=== PATIENT | female | born 1995 | race Caucasian/White ===

== ENCOUNTER → 2016-09-09 | Outpatient (CLI) | payer OTHER ==
--- NOTE | 2016-09-10 07:52 | XR ---
EXAMINATION TYPE: XR foot complete LT DATE OF EXAM: 09/09/2016 12:14 PM CLINICAL HISTORY: Increasing left foot pain after running last week. TECHNIQUE: Frontal, lateral, and oblique images of the left foot are obtained. COMPARISON: None FINDINGS: There is no acute fracture/dislocation evident in the left foot. The joint spaces in the left foot appear within normal limits. The overlying soft tissue appears unremarkable. IMPRESSION: There is no acute fracture or dislocation in the left foot.
== END | disposition home or self-care (01) ==
LOC: RADXRYALE 11:59
PROVIDERS: ATTEND Physician Assistant Medical
DX: M79.672 Pain in left foot (principal)

== ENCOUNTER → 2016-11-11 | Outpatient (CLI) | payer OTHER ==
--- NOTE | 2016-11-11 13:42 | CT ---
EXAMINATION TYPE: CT brain wo con DATE OF EXAM: 11/11/2016 1:30 PM COMPARISON: NONE HISTORY: 21-year-old female blurred vision, intractable migraines TECHNIQUE: Examination was done in axial plane without intravenous contrast. Coronal and sagittal r econstructions performed. CT DLP: 1086 mGycm Automated exposure control for dose reduction was used. FINDINGS: There is no evidence of acute intracranial hemorrhage, acute ischemic changes, mass, mass-effect, or extra-axial fluid collection. There is no effacement of cerebral sulci or basal subarachnoid cister ns. There is no hydrocephalus. There is no midline shift. Carbone-white matter distinction is preserv ed. Slight rightward nasal septal deviation. Mastoid air cells and paranasal sinuses are clear. Orbits an d globes are intact. IMPRESSION: No acute intracranial abnormality seen.
== END | disposition home or self-care (01) ==
LOC: RADCTMAIN 12:37
PROVIDERS: ATTEND Physician Assistant Medical
DX: R42 Dizziness and giddiness (principal); G43.019 Migraine without aura, intractable, without status migrainosus; J34.2 Deviated nasal septum
CPT/HCPCS: 70450

== ENCOUNTER → 2016-12-15 | Outpatient (CLI) | payer OTHER ==
--- NOTE | 2016-12-15 12:45 | US ---
EXAMINATION TYPE: US thyroid st tissue head/neck DATE OF EXAM: 12/15/2016 12:33 PM COMPARISON: NONE CLINICAL HISTORY: R79.89 ABN TSH. Possible left neck palpable noted by physician GLAND SIZE: Right Lobe: 4.5 x 1.7 x 1.2 cm Overall Parenchyma: homogenous Left Lobe: 4.4 x 1.5 x 1.1 cm Overall Parenchyma: homogeneous Isthmus Thickness: 0.1 cm NODULES RIGHT: # of nodules measured on right: 0 LEFT: # of nodules measured on left: 0 ISTHMUS: # of nodules measured in the isthmus: 0 Bilateral neck scanned, no evidence of lymphadenopathy. Thyroid gland is homogeneous. No solid or cystic nodule seen. IMPRESSION: Normal thyroid ultrasound
== END | disposition home or self-care (01) ==
LOC: RADUSWWP 12:14
PROVIDERS: ATTEND Family Medicine
DX: R94.6 Abnormal results of thyroid function studies (principal)
CPT/HCPCS: 76536; 84439; 84443; 86376

== ENCOUNTER → 2018-12-15 | Outpatient (CLI) | payer OTHER | END | disposition home or self-care (01) | LOC: LABWHC1 12:26 | PROVIDERS: ATTEND Obstetrics & Gynecology | DX: O20.0 Threatened abortion (principal) | CPT/HCPCS: 36415; 84702; 86850; 86900; 86901 ==

== ENCOUNTER → 2018-12-17 | Outpatient (CLI) | payer OTHER | END | disposition home or self-care (01) | LOC: LABWHC1 12:40 | PROVIDERS: ATTEND Obstetrics & Gynecology | DX: O20.0 Threatened abortion (principal); Z3A.00 Weeks of gestation of pregnancy not specified | CPT/HCPCS: 36415; 84702 ==

== ENCOUNTER → 2018-12-20 | Outpatient (CLI) | payer OTHER ==
[2018-12-20 15:28] LABS: HCT 42.5 % (34.0-46.0); HGB 14.2 gm/dL (11.4-16.0); MCH 29.6 pg (25.0-35.0); MCHC 33.5 g/dL (31.0-37.0); MCV 88.5 fL (80.0-100.0); Mean Platelet Volume 7.5; Platelet Count 215 k/uL (150-450); RBC 4.81 m/uL (3.80-5.40); RDW 13.3 % (11.5-15.5)
== END ==
LOC: LABWHC1 14:46
PROVIDERS: ATTEND Obstetrics & Gynecology
DX: O03.9 Complete or unspecified spontaneous abortion without complication (principal)
CPT/HCPCS: 36415; 85027; 86850; 86900; 86901

== ENCOUNTER → 2018-12-21 | Outpatient (CLI) | payer OTHER | END | disposition home or self-care (01) | LOC: LABWHC1 15:29 | PROVIDERS: ATTEND Obstetrics & Gynecology | DX: O20.0 Threatened abortion (principal); Z3A.00 Weeks of gestation of pregnancy not specified | CPT/HCPCS: 36415; 84702 ==

== ENCOUNTER → 2018-12-22 | Outpatient (CLI) | payer OTHER ==
--- NOTE | 2018-12-22 11:52 | US ---
EXAMINATION TYPE: Transabdominal and Transvaginal DATE OF EXAM: 12/22/2018 10:58 AM COMPARISON: NONE CLINICAL HISTORY: O46.91 Antepartum hemorrhage, unspecified, first t. EXAM PERFORMED: Transvaginal (TV) and Transabdominal (TA) EXAM MEASUREMENTS: GESTATIONAL AGE / DATING Physician Established: Not yet established Dates by LMP: Dates by First Scan: No previous this is first scan Dates by Current Scan for: (6 weeks/0 days) EDC: 08/27/2019 MATERNAL ANATOMY Uterus: 7.4 x 4.3 x 2.1cm Right Ovary: 2.1 x 1.4 x 2.1cm Left Ovary: 2.1 x 1.6 x1.4 cm Post CDS / Adnexa: wnl Presence of free fluid: no Presence of corpus luteal cyst: on right measuring 1.5 x 1.7 x 1.1cm Presence of subchorionic bleed: no GESTATION / SURVEY CRL: 0.4 (6 weeks/0 days) Yolk Sac (normal less than 6mm): 4mm Heart Rate: 121 bpm IUP: Live IUP Beta HcG (if available): Not available at this time L/M on back line. No answer. Patient hold and call IMPRESSION: Single live intrauterine with a sonographic age of 6 weeks and 0 days and heart rate of 121 bpm. No subchorionic hemorrhage is seen despite this patient's stated vaginal bleeding. MTDD
== END ==
LOC: RADUSWWP 10:28
PROVIDERS: ATTEND Obstetrics & Gynecology
DX: O46.91 Antepartum hemorrhage, unspecified, first trimester (principal); Z3A.01 Less than 8 weeks gestation of pregnancy
CPT/HCPCS: 76801; 76817

== ENCOUNTER → 2019-01-05 | Outpatient (CLI) | payer OTHER ==
[2019-01-05 12:46] LABS: Basophils % (A) 0 %; Eosinophils # (A) 0.2 k/uL (0-0.7); Eosinophils % (A) 3 %; HCT 44.1 % (34.0-46.0); HGB 14.1 gm/dL (11.4-16.0); Lymphocytes # (A) 1.4 k/uL (1.0-4.8); Lymphocytes % (A) 19 %; MCH 28.5 pg (25.0-35.0); MCHC 31.9 g/dL (31.0-37.0); MCV 89.1 fL (80.0-100.0); Mean Platelet Volume 7.2; Monocytes # (A) 0.2 k/uL (0-1.0); Monocytes % (A) 3 %; Neutrophils # (A) 5.5 k/uL (1.3-7.7); Neutrophils % (A) 74 %; Platelet Count 213 k/uL (150-450); RBC 4.94 m/uL (3.80-5.40); RDW 12.7 % (11.5-15.5); WBC 7.3 k/uL (3.8-10.6)
== END | disposition home or self-care (01) ==
LOC: LABPAT 11:30
PROVIDERS: ATTEND Obstetrics & Gynecology
DX: Z01.812 Encounter for preprocedural laboratory examination (principal); O03.9 Complete or unspecified spontaneous abortion without complication
CPT/HCPCS: 36415; 85025

== ENCOUNTER → 2019-01-05 | Outpatient (CLI) | payer OTHER | END | disposition home or self-care (01) | LOC: LABPAT 09:03 | PROVIDERS: ATTEND Obstetrics & Gynecology | DX: Z53.9 Procedure and treatment not carried out, unspecified reason (principal) ==

== ENCOUNTER 2019-01-07 07:46 | Day surgery (SDC) | payer OTHER ==
[2019-01-04 15:08] VITALS: BMI 21.5
[~2019-01-07 07:46] MED LIST: DEXAMETHASONE SOD PHOSPHATE 10 MG/ML 1 ML VIAL IV ONE; HYDROmorphone 0.5 MG/0.5 ML SYRINGE IVP PRN; LACTATED RINGERS 1,000 ML IV SCH; LIDOCAINE 1% 20 ML VIAL (10MG/ML) FOR IV START INTRADERMA PRN; ONDANSETRON 4 MG/2 ML VIAL IVP ONE; Pre Op ABX Message 1 EACH MISC MISCELLANE ONE; SCOPOLAMINE 1.5MG/72HR PATCH TRANSDERM ONE
[2019-01-07] MEDS ORDERED: LACTATED RINGERS 1,000 ML IV ONE (08:10)
[2019-01-07] MEDS ORDERED: KETOROLAC 30 MG/ML 1 ML VIAL ONE (09:01)
[2019-01-07] MEDS ORDERED: MIDAZOLAM 2 MG/2 ML VIAL ONE (09:01)
[2019-01-07] MEDS ORDERED: fentaNYL (PF) 50 MCG/ML 2 ML AMP ONE (09:01)
[2019-01-07] MEDS ORDERED: PROPOFOL 10 MG/ML 20 ML VIAL IV ONE (09:01)
[2019-01-07] MEDS ORDERED: LIDOCAINE 1% INJ 10MG/ML (20 ML MDV) ONE (09:01)
[2019-01-07 09:50] VITALS: TEMP 98.1
[2019-01-07] MEDS ORDERED: IBUPROFEN 600 MG TAB PO PRN (09:53)
[2019-01-07] MEDS ORDERED: KETOROLAC 30 MG/ML 1 ML VIAL IVP PRN (09:53)
[2019-01-07] MEDS ORDERED: ONDANSETRON 4 MG/2 ML VIAL IVP PRN (09:53)
[2019-01-07] MEDS ORDERED: METOCLOPRAMIDE 5 MG/ML 2 ML VIAL IVP PRN (09:53)
[2019-01-07] MEDS ORDERED: diphenhydrAMINE 50 MG/ML 1 ML VIAL IVP PRN (09:53)
[2019-01-07] MEDS ORDERED: SIMETHICONE 80 MG CHEWABLE PO PRN (09:53)
[2019-01-07] MEDS ORDERED: Acetaminophen-Codeine 300-30mg TAB PO PRN ×2 (09:53)
--- NOTE | 2019-01-07 09:59 | P.OP ---
Date of Procedure: 01/07/19 Preoperative Diagnosis: #1. 6+ weeks missed Postoperative Diagnosis: Same Procedure(s) Performed: #1. Dilation and aspiration curettage Anesthesia: other (Gen. by facemask) Surgeon: Yadiel Sweet Estimated Blood Loss (ml): 50 IV fluids (ml): 400 Urine output (ml): 0 Pathology: other (Intrauterine contents/products of conception) Condition: stable Disposition: PACU Operative Findings: Preoperative pelvic examination demonstrated a roughly 6 week slightly anteverted mobile normal shaped uterus with normal adnexa bilaterally. Intraoperatively, the uterus sounded to 9.5 cm. A #8 curved aspiration curet was used through which there was tissue clearly seen passing on the first pass and not thereafter. A small sharp curette was utilized with the typical gritty texture encountered throughout. The uterus was appreciably smaller at the end of the case. Description of Procedure: The patient was prepped and draped in usual fashion after general anesthesia was administered by the anesthesiologist. A weighted speculum was placed and the anterior lip of the cervix grasped with a single-tooth tenaculum. The uterus was sounded to 9.5 cm as noted above. Serial dilation was carried out to admit a #8 curved aspiration curet which was placed to the fundus and suction applied. After building adequate suction, thorough and circumferential aspiration curettage was carried out from the fundus to the cervix with tissue clearly seen passing through the tubing. A second pass was made at which time no tissue nor any other contents were noted passing through the tubing. The aspiration curet was set aside in favor of a small sharp curette which was utilized to again thoroughly and circumferentially curet the endometrial cavity from the fundus to the cervix with no further production of tissue and the typical gritty texture was encountered throughout. One last pass was made with aspiration curet at which time no tissue was again seen. All instrumentation was then removed. There was no ongoing bleeding either from the cervix or from the tenaculum site. Estimated blood loss for the entire case was 50 mL or less. There were no complications. All sponge, instrument, and needle counts were correct. The patient tolerated the procedure well and proceeded to the recovery room in stable condition.
[2019-01-07] MEDS ORDERED: LACTATED RINGERS 1,000 ML IV SCH (10:00)
[2019-01-07 10:19] VITALS: RESP 18
[2019-01-07 11:02] VITALS: BP 107/78; PULSE 91
== END 2019-01-07 11:15 | disposition home or self-care (01) ==
LOC: OR 07:46
PROVIDERS: ATTEND Obstetrics & Gynecology
DX: O02.1 Missed abortion (principal)
CPT/HCPCS: 86900; 86901; 88305; 86850; 59820; J2250; J1100; J2405; J2001; J3010; J1885; J2704

== ENCOUNTER 2021-04-11 06:23 | Inpatient (IN) | payer OTHER ==
[2021-04-11] MEDS ORDERED: OXYTOCIN 10 UNIT/ML 1 ML VIAL IM PRN (06:39)
[2021-04-11] MEDS ORDERED: METHYLERGONOVINE 0.2 MG/ML 1 ML AMP IM PRN (06:39)
[2021-04-11] MEDS ORDERED: LIDOCAINE 0.5% (PF) 5 MG/ML (50 ML SDV) SQ PRN (06:39)
[2021-04-11] MEDS ORDERED: CARBOPROST TROMETHAMINE 250 MCG/ML 1 ML AMP IM PRN (06:39)
[2021-04-11] MEDS ORDERED: TERBUTALINE 1 MG/ML VIAL SQ PRN (06:39)
[2021-04-11 06:45] LABS: Glucose,Whole Blood 88 mg/dL (75-99)
[2021-04-11] MEDS ORDERED: LACTATED RINGERS 1,000 ML IV SCH (06:45)
[2021-04-11] MEDS: LACTATED RINGERS 1,000 ML IV SCH ×2 (06:47→23:45)
[2021-04-11] MEDS: OXYTOCIN 30 UNITS/500 ML NS 30 UNIT in SALINE 1 500ML.BAG IV SCH (06:55)
[2021-04-11 07:24] LABS: Basophils % (A) 0 %; Eosinophils # (A) 0.2 k/uL (0-0.7); Eosinophils % (A) 2 %; HCT 35.6 % (34.0-46.0); Hypochromasia Slight; Lymphocytes # (A) 1.6 k/uL (1.0-4.8); Lymphocytes % (A) 15 %; MCH 26.1 pg (25.0-35.0); MCHC 30.8 g/dL (31.0-37.0); MCV 84.7 fL (80.0-100.0); Mean Platelet Volume 9.7; Monocytes # (A) 0.5 k/uL (0-1.0); Monocytes % (A) 5 %; Neutrophils # (A) 8.7 k/uL (1.3-7.7); Neutrophils % (A) 77 %; Platelet Count 217 k/uL (150-450); Poikilocytosis Slight; RBC 4.21 m/uL (3.80-5.40); RDW 15.5 % (11.5-15.5); WBC 11.2 k/uL (3.8-10.6)
[2021-04-11] MEDS ORDERED: LABETALOL 100 MG TAB PO STA (08:38)
[2021-04-11] MEDS ORDERED: BUTORPHANOL 1 MG/ML 1 ML VIAL IV PRN (08:43)
--- NOTE | 2021-04-11 08:47 | P.HPOB ---
History of Present Illness H&P Date: 04/11/21 Chief Complaint: 37+ weeks, -induced hypertension The patient is a 25-year-old 2 para 0010 admitted at 37+ weeks by 6 week ultrasound. She is admitted for increasingly labile blood pressures despite medication with labetalol 100 mg twice daily and the diagnosis of - induced hypertension. All of her laboratory workup has been normal on several different occasions though she has mildly elevated proteinuria. She additionally has a diagnosis of gestational diabetes but has had normal blood sugars throughout the entire . All testing has been reassuring. Her status is negative. On labor and delivery, she has a category 1 heart rate tracing. Obstetrical history: 2 para 0010 with current statistics listed in history present illness. She has a history of a previous miscarriage not requiring D&C. EDC of 04/26/2021 was established by 6 week ultrasound. Laboratory workup demonstrates a blood type of O+ with a negative antibody screen. Rubella status is immune. Remainder of the laboratory workup was within normal limits. One hour Glucola was significantly elevated at greater than 200 and the diagnosis of gestational diabetes was made. Group B strep status is negative. Gynecologic history: Unremarkable with no history of any infections to include STDs. Review of Systems Review of systems is confined to history of present illness. Past Medical History Past Medical History: No Reported History Additional Past Medical History / Comment(s): Gestational diabetes History of Any Multi-Drug Resistant Organisms: None Reported Additional Past Surgical History / Comment(s): laparoscopy for endometriosis Past Anesthesia/Blood Transfusion Reactions: No Reported Reaction, Motion Sickness Past Psychological History: No Psychological Hx Reported Smoking Status: Never smoker Past Alcohol Use History: Occasional Past Drug Use History: None Reported - Past Family History Mother Family Medical History: No Reported History Medications and Allergies Home Medications Medication Instructions Recorded Confirmed Type Acetaminophen Tab [Tylenol Tab] 500 mg PO Q6H PRN 01/04/19 04/11/21 History Pnv No.95/Ferrous Fum/Folic AC 1 each PO DAILY 01/04/19 04/11/21 History [ Multivitamin Tablet] Cetirizine HCl [Zyrtec] 1 tab PO ONCE 04/11/21 04/11/21 History Labetalol [Trandate] 1 tab PO BID 04/11/21 04/11/21 History Allergies Allergy/AdvReac Type Severity Reaction Status Date / Time No Known Allergies Allergy Verified 04/11/21 06:38 Exam Vital Signs Temp Pulse Resp BP Pulse Ox 04/11/21 06:35 98.5 F 86 16 172/109 100 Intake and Output 04/10/21 04/11/21 04/11/21 22:59 06:59 14:59 Other: Weight 87.997 kg In general, this is a well-developed, well-nourished white female in no acute distress. Her heart has a regular rhythm and rate without murmur. Her lungs a re clear to auscultation bilaterally in all frankel. Her abdomen is gravid, nondistended, has normal active bowel sounds, is soft, nontender, and without any palpable masses aside from uterine fundus. Her extremities are without any cyanosis, clubbing, or edema and are nontender to palpation bilaterally. Digital cervical examination demonstrates her cervix to be 2 cm dilated, 50% effaced, the vertex in presentation at -1 station. Artificial rupture of membranes is carried out demonstrating clear fluid. Results Result Diagrams: 04/11/21 06:40 Abnormal Lab Results - Last 24 Hours (Table) 04/11/21 Range/Units 06:40 WBC 11.2 H (3.8-10.6) k/uL Hgb 11.0 L (11.4-16.0) gm/dL MCHC 30.8 L (31.0-37.0) g/dL Neutrophils # 8.7 H (1.3-7.7) k/uL Assessment and Plan (1) Term Current Visit: Yes Status: Acute Code(s): Z34.90 - ENCNTR FOR SUPRVSN OF NORMAL , UNSP, UNSP TRIMESTER SNOMED Code(s): 68725337 (2) induced hypertension Current Visit: Yes Status: Acute Code(s): O13.9 - GESTATIONAL HTN W/O SIGNIFICANT PROTEINURIA, UNSP TRIMESTER SNOMED Code(s): 85407247 Plan: The patient is admitted for induction of labor secondary to -induced hypertension with worsening and labile pressures despite antihypertensive medication. Her labs have been negative for findings of preeclampsia. On labor and delivery, she has had Pitocin started and undergone artificial rupture of membrane's. She will have close maternal and surveillance and expectant management will be practiced. She is a good candidate for either IV or epidural analgesia, whichever she may choose.
[2021-04-11 12:06] LABS: Glucose,Whole Blood 73 mg/dL (75-99)
[2021-04-11 14:23] LABS: Hemoglobin A1C 5.1 % (4.0-6.0)
[2021-04-11] MEDS ORDERED: SODIUM CHLORIDE 0.9% 100 ML BAG ONE (17:13)
[2021-04-11] MEDS ORDERED: ROPIVACAINE 5MG/ML 20ML VIAL ONE (17:13)
[2021-04-11] MEDS ORDERED: fentaNYL (PF) 50 MCG/ML 5 ML AMP ONE (17:13)
[2021-04-12] MEDS ORDERED: PENICILLIN G POTASSIUM 5,000,000 UNIT in DEXTROSE 5% IN WATER 100 ML IVPB ONE ×2
[2021-04-12] MEDS ORDERED: HYDROCORTISONE 2.5% RECTAL CREAM 30 GM TUBE RECTAL PRN (03:51)
[2021-04-12] MEDS ORDERED: BENZOCAINE/MENTHOL SPRAY 1 GM/SPRAY AEROSOL TOPICAL PRN (03:51)
[2021-04-12] MEDS ORDERED: LANOLIN CREAM 5 GM TUBE TOPICAL PRN (03:51)
[2021-04-12] MEDS ORDERED: ZOLPIDEM 5 MG TAB PO PRN (03:51)
[2021-04-12] MEDS ORDERED: HYDROcodone/APAP 7.5-325MG 1 EACH TAB PO PRN (03:51)
[2021-04-12] MEDS ORDERED: HYDROcodone/APAP 5-325MG 1 EACH TAB PO PRN (03:51)
[2021-04-12] MEDS ORDERED: diphenhydrAMINE 50 MG/ML 1 ML VIAL IVP PRN ×2 (03:51)
[2021-04-12] MEDS ORDERED: diphenhydrAMINE 25 MG CAP PO PRN (03:51)
[2021-04-12] MEDS ORDERED: SIMETHICONE 80 MG CHEWABLE PO PRN (03:51)
[2021-04-12] MEDS ORDERED: diphenhydrAMINE 50 MG CAP PO PRN (03:51)
--- NOTE | 2021-04-12 03:56 | P.PROBDLV ---
Vaginal Delivery Note - . Vaginal Delivery Note: The patient is a 25-year-old 2 para 0010 admitted at 37-6/7 weeks by good dating parameters. She is admitted for induction of labor secondary to -induced hypertension with significantly increasing labile blood pressures despite antihypertensive therapy. Workup for preeclampsia has been negative. Her was otherwise gestational diabetes which was well controlled with diet alone. testing was reassuring throughout. On labor and delivery, she had Pitocin started followed by artificial rupture of membranes. She progressed to around the onset of the active phase of labor which time an epidural catheter was placed for analgesia. She presents very slowly through the active phase of labor but continued to make steady progress and ultimately progressed to complete. She then pushed over the course of approximate 25 minutes to a normal spontaneous vaginal delivery of a viable 8 lbs. 3 oz. baby girl with Apgars of 9 at minute and 9 at 5 minutes delivered in the right occiput anterior position. There was a loose nuchal cord 1 which was reduced prior to delivering the 's body. The nose and mouth were thoroughly suctioned on the perineum secondary to light meconium-stained fluid. Following delivery of the infant, she was immediately vigorous and direct laryngoscopy was not required. The placenta was delivered spontaneously, intact, and grossly normal with a grossly normal three-vessel cord inserted approximate 5 cm from the margin of the placental disc. A small midline episiotomy had been cut for delivery and was noted to have not extended. It was repaired in standard fashion using 3-0 chromic catgut without difficulty. Estimated blood loss for the entire case was approximately 350 mL. There were no complications. All sponge, instrument, and needle counts were correct. Both mother and are resting comfortably in recovery.
[2021-04-12] MEDS ORDERED: OXYTOCIN 30 UNITS/500 ML NS 30 UNIT in SALINE 1 500ML.BAG IV SCH (04:00)
[2021-04-12] MEDS ORDERED: PENICILLIN G POTASSIUM 2,500,000 UNIT in DEXTROSE 5% IN WATER 100 ML IVPB SCH ×2 (04:00)
[2021-04-12] MEDS: IBUPROFEN 600 MG TAB PO PRN ×2 (04:19→20:41)
[2021-04-12] MEDS: OXYTOCIN 30 UNITS/500 ML NS 30 UNIT in SALINE 1 500ML.BAG IV SCH (05:40)
[2021-04-12] MEDS: SENNOSIDES-DOCUSATE SODIUM 1 EACH TAB PO SCH ×2 (09:30→20:41)
[2021-04-12] MEDS: ACETAMINOPHEN TAB 325 MG TAB PO PRN ×2 (09:31→17:12)
[2021-04-12] MEDS: LABETALOL 100 MG TAB PO SCH ×2 (09:38→20:58)
[2021-04-12 17:14] LABS: Glucose,Whole Blood 113 mg/dL (75-99)
[2021-04-12 17:31] LABS: Basophils % (A) 0 %; Eosinophils # (A) 0.1 k/uL (0-0.7); Eosinophils % (A) 1 %; HCT 34.3 % (34.0-46.0); HGB 11.2 gm/dL (11.4-16.0); Hypochromasia Slight; Lymphocytes # (A) 1.7 k/uL (1.0-4.8); Lymphocytes % (A) 8 %; MCH 27.8 pg (25.0-35.0); MCHC 32.6 g/dL (31.0-37.0); MCV 85.2 fL (80.0-100.0); Mean Platelet Volume 8.9; Monocytes # (A) 0.6 k/uL (0-1.0); Monocytes % (A) 3 %; Neutrophils # (A) 17.7 k/uL (1.3-7.7); Neutrophils % (A) 86 %; Platelet Count 266 k/uL (150-450); RBC 4.03 m/uL (3.80-5.40); RDW 15.7 % (11.5-15.5); WBC 20.5 k/uL (3.8-10.6)
[2021-04-12] MEDS: LACTATED RINGERS 1,000 ML IV SCH (21:31)
[2021-04-13] MEDS: IBUPROFEN 600 MG TAB PO PRN ×3 (06:45→22:01)
[2021-04-13] MEDS: LABETALOL 100 MG TAB PO SCH ×2 (08:30→20:18)
[2021-04-13] MEDS: SENNOSIDES-DOCUSATE SODIUM 1 EACH TAB PO SCH ×2 (08:31→20:18)
--- NOTE | 2021-04-13 08:52 | P.PN ---
Subjective Progress Note Date: 04/13/21 Principal diagnosis: Doing well first post day Slept well. Minimal lochia. No pain. No complaints. Objective - Vital Signs Vital signs: Vital Signs Temp 98.5 F 04/13/21 08:00 Pulse 87 04/13/21 08:00 Resp 16 04/13/21 08:00 BP 129/85 04/13/21 08:00 Pulse Ox 95 04/12/21 23:44 - Constitutional General appearance: Present: average body habitus, cooperative - EENT Eyes: Present: PERRLA ENT: Present: hearing grossly normal - Respiratory Respiratory: bilateral: CTA - Cardiovascular Rhythm: regular - Gastrointestinal Gastrointestinal Comment(s): Fundus firm, midline, symmetric, 18 week size, nontender. General gastrointestinal: Present: normal bowel sounds - Neurologic Neurologic: Present: CNII-XII intact - Musculoskeletal Musculoskeletal: Present: gait normal, strength equal bilaterally - Psychiatric Psychiatric: Present: A&O x's 3, appropriate affect, intact judgment & insight - Labs CBC & Chem 7: 04/12/21 17:06 Labs: Abnormal Lab Results - Last 24 Hours (Table) 04/12/21 04/12/21 Range/Units 17:06 17:08 WBC 20.5 H (3.8-10.6) k/uL Hgb 11.2 L (11.4-16.0) gm/dL RDW 15.7 H (11.5-15.5) % Neutrophils # 17.7 H (1.3-7.7) k/uL POC Glucose (mg/dL) 113 H (75-99) mg/dL Assessment and Plan Assessment: Doing well day #1 Plan: Patient requesting discharge home, but is awaiting discharge on her baby per manager of enterprise. If discharge on baby B does not occur today, patient will be discharged home tomorrow morning. Continue care. Time with Patient: Less than 30
[2021-04-13 12:14] LABS: Basophils % (A) 0 %; Eosinophils # (A) 0.2 k/uL (0-0.7); Eosinophils % (A) 2 %; HCT 29.6 % (34.0-46.0); HGB 9.8 gm/dL (11.4-16.0); Hypochromasia Slight; Lymphocytes # (A) 1.3 k/uL (1.0-4.8); Lymphocytes % (A) 11 %; MCH 27.9 pg (25.0-35.0); MCV 84.4 fL (80.0-100.0); Mean Platelet Volume 8.8; Monocytes # (A) 0.3 k/uL (0-1.0); Monocytes % (A) 2 %; Neutrophils # (A) 10.1 k/uL (1.3-7.7); Neutrophils % (A) 83 %; Platelet Count 208 k/uL (150-450); RBC 3.51 m/uL (3.80-5.40); RDW 15.7 % (11.5-15.5); WBC 12.2 k/uL (3.8-10.6)
[2021-04-14 00:07] VITALS: RESP 18
[2021-04-14] MEDS: IBUPROFEN 600 MG TAB PO PRN ×2 (04:16→10:50)
[2021-04-14] MEDS: LABETALOL 100 MG TAB PO SCH (07:56)
[2021-04-14] MEDS: SENNOSIDES-DOCUSATE SODIUM 1 EACH TAB PO SCH (07:59)
[2021-04-14 08:46] VITALS: BP 132/92; PULSE 85; TEMP 98.2
--- NOTE | 2021-04-14 09:00 | P.DS ---
Providers Date of admission: 04/11/21 06:23 Expected date of discharge: 04/14/21 Attending physician: Yadiel Sweet Primary care physician: Stated None Hospital Course: This is a 25-year-old female 2 para 0010 EDC 04/26/2021 at 38 weeks gestation. Patient presented for induction for elevated blood pressure, gestational diabetes. Artificial amniorrhexis revealed thin meconium-stained fluid. Please see dictated history and physical for details. Blood pressure on admission 172/109. Patient went on to deliver vaginally a liveborn female with scores of 9 and 9 at one and 5 minutes respectively. She weighed 8 lbs. 3 oz. or 3710 g. There was a small episiotomy easily repaired. A nuchal cord 1. Please see dictated delivery note for details. The spinal the patient is doing well. She is voiding, ambulating and passing flatus without difficulty. Vital signs are stable and she is afebrile. Blood pressure has normalized. is doing well. Minimal lochia rubra. Breasts are not engorged, no complaint of pain. Patient is judged to be in very good condition for discharge home. She will follow-up in the office in 6 weeks. She is reminded no intercourse, tampons or douching. She will notify us with any fevers shakes or chills, foul smelling or copious lochia, with the passage of large blood clots, with any headache, visual changes, or right upper quadrant pain. Or with any issues or concerns. Continue vitamin daily. Contraceptive options briefly reviewed, she will review this with her primary surfboard maker in the office. will follow-up with poker prop player as recommended. Assessment: Doing well second day Patient Condition at Discharge: Good Plan - Discharge Summary Discharge Rx Participant: No New Discharge Prescriptions: No Action Pnv No.95/Ferrous Fum/Folic AC [ Multivitamin Tablet] 1 each PO DAILY Acetaminophen Tab [Tylenol Tab] 500 mg PO Q6H PRN PRN Reason: Pain Cetirizine HCl [Zyrtec] 1 tab PO ONCE Labetalol [Trandate] 1 tab PO BID Discharge Medication List Acetaminophen Tab [Tylenol Tab] 500 mg PO Q6H PRN 01/04/19 [History] Pnv No.95/Ferrous Fum/Folic AC [ Multivitamin Tablet] 1 each PO DAILY 01/04/19 [History] Cetirizine HCl [Zyrtec] 1 tab PO ONCE 04/11/21 [History] Labetalol [Trandate] 1 tab PO BID 04/11/21 [History] Follow up Appointment(s)/Referral(s): Yadiel Sweet MD [STAFF PHYSICIAN] - 6 Weeks Discharge Disposition: HOME SELF-CARE
== END 2021-04-14 12:00 | disposition home or self-care (01) | DRG 807 ==
LOC: 4FBP 06:23
PROVIDERS: ADMIT Obstetrics & Gynecology; ATTEND Obstetrics & Gynecology
PROC: 10E0XZZ Delivery of Products of Conception, External Approach (ICD-10-PCS; principal; 2021-04-11)
PROC: 0W8NXZZ Division of Female Perineum, External Approach (ICD-10-PCS; 2021-04-11)
PROC: 10907ZC Drainage of Amniotic Fluid, Therapeutic from Products of Conception, Via Natural or Artificial Opening (ICD-10-PCS; 2021-04-11)
DX: O24.429 Gestational diabetes mellitus in childbirth, unspecified control (principal); O13.4 Gestational [pregnancy-induced] hypertension without significant proteinuria, complicating childbirth; O69.81X0 Labor and delivery complicated by cord around neck, without compression, not applicable or unspecified; Z37.0 Single live birth; O77.0 Labor and delivery complicated by meconium in amniotic fluid; Z3A.38 38 weeks gestation of pregnancy
CPT/HCPCS: 83036; 85025; 86850; 86900; 86901; 88307

== ENCOUNTER 2023-09-20 07:13 | Outpatient (CLI) | payer OTHER ==
[2023-09-20 09:22] VITALS: BP 144/96; PULSE 87; RESP 16; TEMP 97.5
--- NOTE | 2023-10-02 10:01 | P.MSEPDOC ---
Presenting Problems - Arrival Data Date of Arrival on Unit: 09/20/23 Time of Arrival on Unit: 07:13 Mode of Transport: Ambulatory - Complaint OB-Reason for Admission/Chief Complaint: Pain Comment: Patient presents to triage with contractions that she was rating 3/10 pain that started yesterday afternoon. Medical History - Information : 2 Para: 1 Term: 1 : 0 - Gestational Age Gestational Age by JAYY (wks/days): 38 Weeks and 5 Days Review of Systems - Review of Systems Constitutional: No problems Breast: No problems ENT: No problems Cardiovascular: No problems Respiratory: No problems Gastrointestinal: No problems Genitourinary: No problems Musculoskeletal: No problems Neurological: No problems Skin: No problems Vital Signs - Temperature Temperature: 97.5 F Temperature Source: Temporal Artery Scan - Pulse Pulse Oximetery Pulse Rate: 87 Pulse Assessment Method: Pulse Oximetry - Respirations Respiratory Rate: 16 Oxygen Delivery Method: Room Air O2 Sat by Pulse Oximetry: 99 - Blood Pressure Right Arm Blood Pressure: 144/96 Blood Pressure Mean: 112 Blood Pressure Source: Automatic Cuff Physician Notification - Physician Notified Physician Notified Date: 09/20/23 Physician: Beth Frazier New Order Received: Yes (discharge) Maternal Triage Index - Maternal Triage Index Presenting for scheduled procedure w/no complaint: No - Stat/Priority 1 Stat Priority 1: No - Urgent/Priority 2 Urgent Priority 2: No - Prompt/Priority 3 Prompt Priority 3: No - Non-Urgent/Priority 4 Non-Urgent Priority 4: Yes Criteria Met for Priority 4: Patient presents to triage with contractions that she was rating 3/10 pain that started yesterday afternoon. Disposition - Disposition OB Disposition: Discharge to home I agree with the RN Medical Screening Exam: Yes Physician's MSE Comment: Repeat blood pressure and obix, 132/90, then 118/89, 116/87 115/83 Case reviewed; plan agreed upon as documented in EMR&OBIX.: Yes Diagnosis: RELATED CONDITIONS, UNSPECIFIED, THIRD TRIMESTER
== END 2023-09-20 08:57 ==
LOC: FBPOP 07:13
PROVIDERS: ATTEND Obstetrics & Gynecology Obstetrics
DX: O62.9 Abnormality of forces of labor, unspecified (principal); Z3A.38 38 weeks gestation of pregnancy
CPT/HCPCS: 59025; 99213

== ENCOUNTER 2023-09-23 10:49 | Inpatient (IN) | payer OTHER ==
[2023-09-23] MEDS ORDERED: TRANEXAMIC 1,000 MG/100ML-NACL 1,000 MG in EMPTY BAG 1 BAG IV PRN (11:14)
[2023-09-23] MEDS ORDERED: miSOPROStoL 200 MCG TAB PO PRN (11:14)
[2023-09-23] MEDS ORDERED: LIDOCAINE 0.5% (PF) 5 MG/ML (50 ML SDV) SQ PRN (11:14)
[2023-09-23] MEDS ORDERED: TERBUTALINE 1 MG/ML VIAL SQ PRN (11:14)
[2023-09-23] MEDS ORDERED: METHYLERGONOVINE 0.2 MG/ML 1 ML AMP IM PRN (11:14)
[2023-09-23] MEDS ORDERED: OXYTOCIN 10 UNIT/ML 1 ML VIAL IM PRN (11:14)
[2023-09-23] MEDS ORDERED: CARBOPROST TROMETHAMINE 250 MCG/ML 1 ML AMP IM PRN (11:14)
[2023-09-23] MEDS ORDERED: OXYTOCIN 30 UNITS/500 ML NS 30 UNIT in SALINE 1 500ML.BAG IV SCH ×2 (11:15→14:15)
[2023-09-23 11:26] LABS: Basophils % (A) 0 %; Eosinophils # (A) 0.1 k/uL (0-0.7); Eosinophils % (A) 1 %; HCT 38.8 % (34.0-46.0); HGB 12.8 gm/dL (11.4-16.0); Hypochromasia Slight; Lymphocytes # (A) 1.9 k/uL (1.0-4.8); Lymphocytes % (A) 11 %; MCH 26.5 pg (25.0-35.0); MCV 80.3 fL (80.0-100.0); Mean Platelet Volume 9.9; Monocytes # (A) 0.5 k/uL (0-1.0); Monocytes % (A) 3 %; Neutrophils % (A) 84 %; Platelet Count 228 k/uL (150-450); Poikilocytosis Slight; RBC 4.83 m/uL (3.80-5.40); RDW 14.9 % (11.5-15.5); WBC 16.7 k/uL (3.8-10.6)
[2023-09-23] MEDS ORDERED: fentaNYL (PF) 50 MCG/ML 5 ML AMP ONE (11:42)
[2023-09-23] MEDS ORDERED: SODIUM CHLORIDE 0.9% 250 ML BAG ONE (11:42)
[2023-09-23] MEDS ORDERED: ROPIVACAINE 5 MG/ML 30 ML VIAL ONE (11:42)
--- NOTE | 2023-09-23 12:20 | P.HPOB ---
History of Present Illness H&P Date: 09/23/23 Chief Complaint: 39 1/7 weeks, active labor The patient is a 28-year-old 3 para 1011 who presents at 39 1/7 weeks by a 7 week ultrasound in active labor with all signs reassuring, category 1 heart rate tracing. She was scheduled for induction tomorrow secondary to a diagnosis of large for gestational age fetus with growth at the 98th percentile. She presents in labor at this time. She carries a history of gestational diabetes as well as gestational hypertension which has not been a problem for this . Group B strep status is negative. Obstetrical history: 3 para 1011 with 1 term vaginal delivery induced secondary to gestational hypertension with gestational diabetes. This was at 37 weeks. She also has one early miscarriage for which she had a D&C. Current statistics are listed in history of present illness. EDC of 09/29/2023 was established by seven-week ultrasound. Laboratory workup demonstrates a blood type of O+ with a negative antibody screen. Rubella status is immune. Remainder of the laboratory workup was within normal limits. One hour Glucola done early was normal. Second trimester Glucola was elevated been followed by a normal glucose tolerance test. Group B strep status is negative. Gynecologic history: Unremarkable with no history of any infections to include STDs. Review of Systems Review of systems is confined to history of present illness. Past Medical History Past Medical History: No Reported History Additional Past Medical History / Comment(s): Gestational diabetes History of Any Multi-Drug Resistant Organisms: None Reported Additional Past Surgical History / Comment(s): laparoscopy for endometriosis Past Anesthesia/Blood Transfusion Reactions: No Reported Reaction, Motion Sickness Smoking Status: Never smoker - Past Family History Mother Family Medical History: No Reported History Medications and Allergies Home Medications Medication Instructions Recorded Confirmed Type Acetaminophen Tab [Tylenol Tab] 500 mg PO Q6H PRN 01/04/19 09/20/23 History Pnv No.95/Ferrous Fum/Folic AC 1 each PO DAILY 01/04/19 09/20/23 History [ Multivitamin Tablet] Cetirizine HCl [Zyrtec] 1 tab PO ONCE 04/11/21 09/20/23 History Labetalol [Trandate] 1 tab PO BID 04/11/21 09/20/23 History Omeprazole 1 tab PO DAILY 09/20/23 09/20/23 History Allergies Allergy/AdvReac Type Severity Reaction Status Date / Time No Known Allergies Allergy Verified 04/11/21 06:38 Exam Vital Signs Temp Resp 09/23/23 11:05 98.0 F 20 Intake and Output 09/22/23 09/23/23 09/23/23 22:59 06:59 14:59 Other: Weight 88.451 kg In general, this is a well-developed, well-nourished white female in no acute distress. Her heart has a regular rhythm and rate without murmur. Her lungs clear to auscultation bilaterally in all frankel. Her abdomen is gravid, nondistended, has normal active bowel sounds, is soft, nontender, and without any palpable masses aside from uterine fundus. Her extremities are without any cyanosis, clubbing, or edema and are nontender to palpation bilaterally. Digital cervical examination performed by the nursing staff at admission demonstrates her surgery 67 m dilated, 80% effaced, the vertex in presentation at -1 station. Results Result Diagrams: 09/23/23 11:22 Abnormal Lab Results - Last 24 Hours (Table) 09/23/23 Range/Units 11:22 WBC 16.7 H (3.8-10.6) k/uL Neutrophils # 14.0 H (1.3-7.7) k/uL Assessment and Plan (1) Active labor at term Current Visit: Yes Status: Acute Code(s): [id number] - SNOMED Code(s): 37275044 Plan: The patient is admitted for active management of labor. She will have close maternal and surveillance and expectant management will be practiced. She is a candidate for epidural and has had one placed recently. She will then undergo artificial rupture of membranes. I would anticipate normal spontaneous vaginal delivery in the near future.
[2023-09-23] MEDS ORDERED: diphenhydrAMINE 50 MG/ML 1 ML VIAL IVP PRN ×2 (14:11)
[2023-09-23] MEDS ORDERED: LANOLIN CREAM 1 GM TUBE TOPICAL PRN (14:11)
[2023-09-23] MEDS ORDERED: HYDROcodone/APAP 7.5-325MG 1 EACH TAB PO PRN (14:11)
[2023-09-23] MEDS ORDERED: HYDROCORTISONE 2.5% RECTAL CREAM 30 GM TUBE RECTAL PRN (14:11)
[2023-09-23] MEDS ORDERED: BENZOCAINE/MENTHOL SPRAY 1 GM/SPRAY AEROSOL TOPICAL PRN (14:11)
[2023-09-23] MEDS ORDERED: ZOLPIDEM 5 MG TAB PO PRN (14:11)
[2023-09-23] MEDS ORDERED: HYDROcodone/APAP 5-325MG 1 EACH TAB PO PRN (14:11)
[2023-09-23] MEDS ORDERED: diphenhydrAMINE 50 MG CAP PO PRN (14:11)
[2023-09-23] MEDS ORDERED: diphenhydrAMINE 25 MG CAP PO PRN (14:11)
[2023-09-23] MEDS ORDERED: SIMETHICONE 80 MG CHEWABLE PO PRN (14:11)
--- NOTE | 2023-09-23 14:15 | P.PROBDLV ---
Vaginal Delivery Note - . Vaginal Delivery Note: The patient is a 28-year-old 3 para 1011 admitted at 39 and one sevenths weeks by good dating parameters perches admitted in active labor with all signs reassuring, category 1 heart rate tracing. On admission, she is found to be 6 cm dilated. Her has been entirely uncomplicated and she was scheduled for induction of labor tomorrow secondary to a presumptive diagnosis of macrosomia, large for gestational age at the 98th percentile growth last ultrasound. On labor and delivery, she had an epidural catheter placed for analgesia and then underwent artificial rupture of membranes for clear fluid. She made fairly quick progress to complete and then pushed over the course of approximate 5 contractions to a normal spontaneous vaginal delivery of a viable 9 lbs. 3 oz. baby girl with Apgars of 9 at 1 minute and 9 at 5 minutes delivered in the right occiput anterior position. The placenta was delivered spontaneously, intact, and grossly normal with a grossly normal, centrally inserted three-vessel cord. A very small midline perineal episiotomy had been cut as I was unable to reduce the perineum over the baby is head and it was clear a laceration was going to occur. This was in the site of the previous episiotomy scar. The and immediately delivered as noted above. The small midline episiotomy was then closed in standard fashion with 3-0 chromic catgut without difficulty. Estimated blood loss for the case is approximately 150 mL. There were no complications. All sponge, instrument, needle counts were correct. Both mother and are resting comfortably in recovery.
[2023-09-23 14:49] VITALS: RESP 16
[2023-09-23] MEDS: ACETAMINOPHEN TAB 325 MG TAB PO PRN (17:50)
[2023-09-23] MEDS: SENNOSIDES-DOCUSATE SODIUM 1 EACH TAB PO SCH (20:25)
[2023-09-23] MEDS: IBUPROFEN 600 MG TAB PO PRN (20:25)
[2023-09-23] MEDS: LACTATED RINGERS 1,000 ML IV SCH ×2 (22:23)
[2023-09-23] MEDS: ROPIVACAINE 225 MG, fentaNYL (PF). 450 MCG in SODIUM CHLORIDE 0.9% 171 ML EPIDURAL ONE (22:23)
[2023-09-24 07:47] LABS: Basophils % (A) 0 %; Eosinophils # (A) 0.1 k/uL (0-0.7); Eosinophils % (A) 1 %; HCT 32.6 % (34.0-46.0); HGB 10.5 gm/dL (11.4-16.0); Hypochromasia Slight; Lymphocytes % (A) 18 %; MCH 26.6 pg (25.0-35.0); MCHC 32.3 g/dL (31.0-37.0); MCV 82.5 fL (80.0-100.0); Monocytes # (A) 0.4 k/uL (0-1.0); Monocytes % (A) 4 %; Neutrophils # (A) 8.2 k/uL (1.3-7.7); Neutrophils % (A) 76 %; Platelet Count 178 k/uL (150-450); RBC 3.96 m/uL (3.80-5.40); WBC 10.9 k/uL (3.8-10.6)
--- NOTE | 2023-09-24 08:42 | P.DS ---
Providers Date of admission: 09/23/23 11:14 Expected date of discharge: 09/24/23 Attending physician: Yadiel Sweet Primary care physician: Stated None - Discharge Diagnosis(es) (1) Active labor at term Current Visit: Yes Status: Acute (2) Normal spontaneous vaginal delivery Current Visit: No Status: Acute Hospital Course: The patient is a 28-year-old 3 para 1011 admitted at 39 and one sevenths weeks by good dating parameters perches admitted in active labor day prior to scheduled induction with a diagnosis of large for gestational age fetus, growth at the 98th percentile in the late third trimester. On labor and delivery, all signs are reassuring with a category 1 heart rate tracing. She had an epidural catheter placed for analgesia and underwent artificial rupture of membranes. She then progressed fairly quickly to complete and pushed to a normal spontaneous vaginal delivery of a viable viable 9 lbs. 3 oz. baby girl with Apgars of 9 at 1 minute and 9 at 5 minutes. Her course was unremarkable vital signs remaining stable and her temperature was afebrile throughout. She was deemed stable for discharge on day #1 was discharged home to follow-up in the office in 6 weeks' time routinely. Discharge instructions included calling for any significantly increased bleeding or foul-smelling lochia, significantly increased fever abdominal pain, perineal complaints, breast complaints, or anything else that concerned her. She was additionally instructed to have nothing in the vagina for at least 6 weeks time to include intercourse. She understood her instructions and agrees to follow up as noted above. Discharge medications included continued vitamins as she has opted to breast-feed. She was otherwise to use [id number] analgesic pain medications. Maternal blood type is O+ and rubella status is immune. Procedures: #1. Epidural analgesia #2. Artificial rupture of membranes #3. Normal spontaneous vaginal delivery #4. Second-degree midline episiotomy and repair Patient Condition at Discharge: Stable Plan - Discharge Summary New Discharge Prescriptions: No Action Pnv No.95/Ferrous Fum/Folic AC [ Multivitamin Tablet] 1 each PO DAILY Acetaminophen Tab [Tylenol Tab] 500 mg PO Q6H PRN PRN Reason: Pain Cetirizine HCl [Zyrtec] 1 tab PO ONCE Omeprazole 1 tab PO DAILY Labetalol [Trandate] 1 tab PO BID Discharge Medication List Acetaminophen Tab [Tylenol Tab] 500 mg PO Q6H PRN 01/04/19 [History] Pnv No.95/Ferrous Fum/Folic AC [ Multivitamin Tablet] 1 each PO DAILY 01/04/19 [History] Cetirizine HCl [Zyrtec] 1 tab PO ONCE 04/11/21 [History] Labetalol [Trandate] 1 tab PO BID 04/11/21 [History] Omeprazole 1 tab PO DAILY 09/20/23 [History] Follow up Appointment(s)/Referral(s): Yadiel Sweet MD [STAFF PHYSICIAN] - 6 Weeks Discharge Disposition: HOME SELF-CARE
[2023-09-24 09:21] VITALS: BP 115/82; PULSE 87; TEMP 98
== END 2023-09-24 14:53 | disposition home or self-care (01) | DRG 807 ==
LOC: FBPOP 10:49 → 4FBP 11:14
PROVIDERS: ADMIT Obstetrics & Gynecology; ATTEND Obstetrics & Gynecology
PROC: 10E0XZZ Delivery of Products of Conception, External Approach (ICD-10-PCS; principal; 2023-09-23)
PROC: 10907ZC Drainage of Amniotic Fluid, Therapeutic from Products of Conception, Via Natural or Artificial Opening (ICD-10-PCS; 2023-09-23)
PROC: 0W8NXZZ Division of Female Perineum, External Approach (ICD-10-PCS; 2023-09-23)
DX: O36.63X0 Maternal care for excessive fetal growth, third trimester, not applicable or unspecified (principal); Z37.0 Single live birth; Z86.32 Personal history of gestational diabetes; Z3A.39 39 weeks gestation of pregnancy
CPT/HCPCS: 85025; 86850; 86900; 86901; 99213